=== PATIENT | female | born 1970 | race Caucasian/White ===

== ENCOUNTER → 2016-10-18 | Outpatient (CLI) | payer BC ==
[~2016-10-18] MED LIST: ALLERGY SHOTS INJ; BUPR-79 PO; CETI10TA84 PO; CYAN3INJ SQ; FLNIN NAE; HYDR25TA4 PO; LISI-725 PO; LISI5TAB PO; MULT-506 PO; NALT1TAB14 PO; SNG10 PO; TYLOTC500 PO
--- NOTE | 2016-10-18 14:18 | DIAGNOSTIC IMAGING REPORT ---
KUB HISTORY: CALCULUS OF KIDNEY COMPARISON: KUB 11/04/2014. FINDINGS: The bowel gas pattern is unremarkable. There are no dilated loops of small bowel to suggest an obstruction. No renal calculi. No ureteral calculi. No pneumoperitoneum or pneumatosis. There is suture material within the left side of the abdomen, unchanged. There are surgical clips within the left deep pelvis, unchanged. Stable punctate calcifications in the deep pelvis consistent with phleboliths. Prior cholecystectomy. IMPRESSION: No renal or ureteral stones. Electronically signed by: Spencer Camacho M.D. 10/18/2016 2:16 PM Dictated Date/Time: 10/18/2016 2:15 PM
== END | disposition home or self-care (01) ==
LOC: C.RAD1850 13:40
PROVIDERS: ATTEND Family Medicine
DX: N20.0 Calculus of kidney (principal)

== ENCOUNTER → 2016-10-29 | Outpatient (CLI) | payer BC ==
--- NOTE | 2016-10-29 08:27 | DIAGNOSTIC IMAGING REPORT ---
CT SCAN OF THE ABDOMEN AND PELVIS WITHOUT IV CONTRAST CLINICAL HISTORY: Left flank pain. COMPARISON STUDY: Abdominal CT dated 12/28/2013 and 11/15/2011. TECHNIQUE: CT scan of the abdomen and pelvis is performed from the lung bases to the proximal femora. Images are reviewed in the axial, sagittal, and coronal planes. IV contrast was not administered for this examination. Automated dose control exposure was utilized. CT DOSE: 675.04 mGy.cm FINDINGS: Lung bases: The heart is normal in size and without pericardial effusion. There are scattered coronary artery calcifications. A 4 mm pulmonary nodule at the left lung base seen on image #53. There are 4 mm pleural-based nodules seen in the right middle lobe on image #8 and in the right lower lobe on image #28. Additional small noncalcified nodules and calcified granulomas are present at the lung bases. These are unchanged from 2012 and of doubtful significance. No airspace consolidation or pleural effusion is identified. Liver: The unenhanced liver is normal in size, contour, and attenuation. There is mild central intrahepatic biliary ductal dilatation. Gallbladder: Surgically absent noting clips in the gallbladder fossa. Spleen: Normal in size and attenuation. There are numerous small calcified splenic granulomas. Pancreas: Unremarkable. Adrenal glands: Unremarkable. Kidneys: The unenhanced kidneys are normal in size and without hydronephrosis. Cortical scarring is seen in the left lower pole. There are no renal calculi identified. There is no evidence of contour deforming renal mass lesion. Abdominal vasculature: The abdominal aorta is normal in course and caliber. Stomach and bowel: A tiny hiatal hernia is observed. 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 No bowel obstruction is seen. The appendix is surgically absent. Peritoneum: There is no intraperitoneal free air or abdominal ascites. There is diastases of the rectus musculature with evidence of previous ventral hernia repair. Lymphadenopathy: None. Pelvic viscera: The bladder wall appears thickened and there is mild pericystic stranding. The uterus is normal as visualized. There are bilateral ovarian follicles. Free fluid is seen in the cul-de-sac. Skeletal structures: No lytic or blastic lesions are seen. IMPRESSION: 1. The bladder wall appears thickened and there is mild pericystic stranding. The appearance suggests cystitis. Correlation with clinical findings and urinalysis will be required. 2. There are postoperative changes from a Cristobal-en-Y gastric bypass procedure. No bowel obstruction is seen. 3. Trace free fluid in the cul-de-sac is likely within physiologic limits. 4. Additional findings as above. Electronically signed by: Tor Kennedy M.D. 10/29/2016 8:25 AM Dictated Date/Time: 10/29/2016 8:19 AM
== END | disposition home or self-care (01) ==
LOC: C.CTS 07:45
PROVIDERS: ATTEND Family Medicine
DX: R10.9 Unspecified abdominal pain (principal)

== ENCOUNTER → 2016-12-21 | Day surgery (SDC) | payer BC ==
[2016-12-03 08:29] VITALS: Ht 165.1 cm; Wt 93.2 kg
[~2016-12-21] VITALS: Ht 165.1 cm; Wt 93.2 kg
[~2016-12-21] MED LIST changes: -ALLERGY SHOTS INJ; +ATROPINE SULFATE 0.1 MG/ML 5ML SYR IV PRN; +BUPIVACAINE 0.5 % 5 MG/1 ML MPF 30ML VIAL ONE; +BUPIVACAINE/EPINEPHRINE 0.5% MPF 1:200,000 30 ML VIAL ONE; -BUPR-79 PO; +CEFAZOLIN 2000 MG/60 ML D5W IV SCH; +DEXAMETHASONE SOD INJ 4 MG/ML VIAL ONE; +EpHEDrine SULFATE INJ 50 MG/ML AMP IV PRN; +FENTANYL CITRATE INJ 50 MCG/1 ML 2 ML VIAL IM ONE; +FENTANYL CITRATE INJ 50 MCG/1 ML 2 ML VIAL ONE; +HYDROCODONE/ACETAMOPHEN 5/325MG TAB PO PRN; +LACTATED RINGER'S 1000ML 1,000 ML IV SCH; +LIDOCAINE HCL 1% 20 ML VIAL ONE; +LIDOCAINE HCL 1% MPF 2 ML VIAL ONE; +LIDOCAINE HCL 2% 2 ML VIAL (20MG/ML) ONE; -LISI-725 PO; +METOCLOPRAMIDE HCL INJ 5 MG/ML 2 ML VIAL IV PRN; +MIDAZOLAM HCL 1 MG/ML 2ML VIAL ONE; +ONDANSETRON INJ 2 MG/ML 2 ML VIAL IV PRN; +ONDANSETRON INJ 2 MG/ML 2 ML VIAL ONE; +PROPOFOL IV EMULSION 10 MG/ML 20 ML VIAL IV ONE; +SODIUM CHLORIDE 0.9% 1000ML 1,000 ML IV SCH; -TYLOTC500 PO
--- NOTE | 2016-12-21 06:38 | History & Physical Bridge - SC ---
H&P Re-Evaluation Bridge Note: I have examined the patient, reviewed the History & Physical and in the interval since the performance of the History & Physical I have noted the following changes of clinical significance: No changes noted
--- NOTE | 2016-12-21 08:24 | [facility] Post Operative Brief Note ---
Immediate Operative Summary Operative Date Dec 21, 2016. 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 Left foot Hess's Neuroma 2nd & 3rd toes Drains none Anesthesia general Complication(s) None Disposition Recovery Room / PACU
--- NOTE | 2016-12-21 08:29 | Discharge Instructions-SurgCtr ---
Discharge Instructions Date of Service Dec 21, 2016. Visit Reason for Visit: Left Foot 2ND & 3RD Toes Santos's Neuroma Discharge Discharge Diagnosis / Problem: s/p excision santos's neuroma left foot Discharge Goals Goal(s): Decrease discomfort, Improve function, Increase independence Activity Recommendations Activity Limitations: as noted below Lifting Limitations: gradually increase as tolerated Exercise/Sports Limitations: until after follow-up appointment Shower/Bathe: keep incision dry Driving or Machine Use: when narcotics are discontinued Weightbearing Status: Left weightbearing (as tolerated) Anesthesia . Post Anesthesia Instructions: If you have had General Anesthesia or IV Sedation: * Do not drive today. * Resume driving when surgeon permits. * Do not make important decisions or sign legal documents today. * Call surgeon for: 1. Temperature elevations greater than 101 degrees F. 2. Uncontrollable pain. 3. Excessive bleeding. 4. Persistent nausea and vomiting. 5. Medication intolerance (nausea, vomiting or rash). * For nausea and vomiting use only clear liquids such as: tea, soda, bouillon until nausea subsides, then gradually increase diet as tolerated. * If you have any concerns or questions, call your surgeon's office. If physician is unavailable and it is an emergency, call 911 or go to the nearest emergency room. . Instructions / Follow-Up Instructions / Follow-Up DIET: * Resume previous diet. MEDICATIONS: * Please take your prescriptions as instructed at your pre-op appointment and/ or see medication discharge instructions listed above. * If concerns develop, call your physician's office at . SPECIAL CARE INSTRUCTIONS: * Ice/Elevate as instructed. * Keep dressing clean, dry, intact. * Your surgical extremity may be discolored due to prepping agents used on the skin. A bluish-green tint is a normal variant and should not cause alarm. Call your doctor at [phone] if: * Temperature above 101 degrees * Pain not relieved by pain medicine ordered * There is increased drainage or redness from any incision * You have any unanswered questions, problems or concerns. FOLLOW UP VISIT: * If not already scheduled, please call the office at to schedule a follow-up appointment. Diet Recommendations Home Diet: resume previous diet Procedures Procedures Performed: Left Foot 2nd And 3rd Toes Santos's Neuroma Excision Pending Studies Studies pending at discharge: yes List of pending studies: specimen left foot santos's neuroma Medical Emergencies . Who to Call and When: Medical Emergencies: If at any time you feel your situation is an emergency, please call 911 immediately. . Non-Emergent Contact Non-Emergency issues call your: Primary Care Provider . . "Provider Documentation" section prepared by Norberto Smith. . [place] Drug Monitoring Program Search Results: no issues identified
--- NOTE | 2016-12-21 08:41 | [facility] Operative Report ---
Operative Report Operative Date Dec 21, 2016. 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 Fluids (cc crystalloids) 900 Specimens A. Left foot Hess's Neuroma 2nd & 3rd toes Drains n/a Anesthesia LMA Complication(s) None Disposition Recovery Room / PACU (Stable) Implants 2-0 FiberWire Indications The patient is a 46 year old female with left second and third Hess's neuroma , that has failed conservative treatment and the patient wishes to proceed with surgical intervention. The patient understands the risks of surgery, which include but are not limited to: bleeding, infection, re-operation, damage to nerves and arteries, continued pain, decreased level of activity, and DVT. The patient understands all of these instructions and explanations, all of their questions have been satisfactorily addressed. The patient has elected to proceed with surgery and the informed consent was signed. Description of Procedure The patient was taken to the Operating Room and placed in the supine position on the operating table. After general anesthetic was administered a multidisciplinary time-out was performed identifying my initials on the left lower limb as the correct and operative limb. Prior to the incision being made , 2 grams of intravenous Ancef was given. The left lower leg was prepped and draped in the standard sterile fashion. The planned incision partially 3 cm between the second and third metatarsals from 5 mm from the webspace distal was injected with a 50:50 mixture of 1% lidocaine plain and half percent Marcaine plain for a total of 5 cc. The planned incision was carried through the skin with a scalpel. Blunt dissection was then used and carried down to the intermetatarsal ligament. Care was taken to preserve any of the superficial neurovascular structures. Once the deep intermetatarsal ligament was incised, a lamina video tape transferrer was used to expose the plantar digital nerve. The nerve did appear to be in large to in the area of the deep intermetatarsal ligament. There were some communicating branches to the nerve. The proximal branches to the second and third digit were released first followed by the communicating branches. A 2-0 FiberWire was placed along the nerve proximal to the neuroma and tied. The nerve was then excised distal to the suture. The wound was copiously irrigated. All the instruments were removed. The skin was closed with 4-0 nylon with horizontal mattress sutures. The wound was covered with Xeroform, 4 x 4's, ABDs, sterile cast padding, and an Vincent bandage. A postop shoe was placed. The sponge and needle counts were correct. Post-op Instructions: Pain medicine prescription was given pre-operatively to be taken as needed. The patient will follow up with me in 10-15 days. The patient will be weight bearing as tolerated in the postop shoe. Postoperatively an ankle block was performed by anesthesia, due to pain. I attest to the content of the Intraoperative Record and any orders documented therein. Any exceptions are noted below.
[2016-12-21] MEDS: FENTANYL CITRATE INJ 50 MCG/1 ML 2 ML VIAL IV PRN ×5 (08:45→09:18)
--- NOTE | 2016-12-21 09:51 | Progress Note ---
Progress Note Date of Service Dec 21, 2016. Progress Note Patient in 1010 foot pain around site of incision in pacu. Minimally responsive to 250mcg fentanyl. Toes well perfused and mobile. Spoke with Dr Palomares who commented that his surgical field was deeper than anticipated. I did offer the patient a nerve block for her post op pain and she consented. Under ultrasound guidance and sterile technique, a 10cm stimuplex needle was advanced to the sciatic nerve above the popliteal crease just prior to the bifurcation of the common peroneal and tibial nerve. 20cc of 0.25% bupivicaine with 1:200k epinephrine and 4mg of Dexamethasone were injected under live ultrasound guidance. Spread of local anesthetic was observed distally around both nerves. The patient's pain improved significantly and an adequate sensory distribution was observed. At this point she was progressed in her PACU course. No complications of the nerve block were observed and the patient tolerated the procedure well.
[2016-12-21 10:08] VITALS: TEMP 36.4
--- NOTE | 2016-12-21 10:17 | Anesthesia Progress Nt - [facility] ---
Anesthesia Post Op Note Date & Time Dec 21, 2016 at 10:16 Vital Signs Pain Intensity: 3 Vital Signs Past 12 Hours Date Time Temp Pulse Resp B/P (MAP) Pulse Ox O2 Delivery O2 Flow Rate FiO2 12/21/16 09:36 135/85 12/21/16 09:33 70 22 12/21/16 09:33 72 22 100 12/21/16 09:31 136/91 12/21/16 09:29 136/98 12/21/16 09:28 71 16 95 12/21/16 09:28 73 16 12/21/16 09:27 126/87 12/21/16 09:23 95 21 12/21/16 09:23 94 21 180/119 100 12/21/16 09:18 90 34 100 12/21/16 09:18 89 34 12/21/16 09:13 76 21 12/21/16 09:13 74 21 100 12/21/16 09:12 177/105 12/21/16 09:08 81 21 100 12/21/16 09:08 82 21 12/21/16 09:07 186/139 12/21/16 09:03 76 21 99 12/21/16 09:03 78 21 12/21/16 08:58 86 16 99 12/21/16 08:58 87 16 12/21/16 08:57 170/104 12/21/16 08:53 84 24 99 12/21/16 08:53 85 24 12/21/16 08:52 172/117 12/21/16 08:50 164/107 12/21/16 08:39 36.1 95 16 152/103 97 Mask 12/21/16 06:31 36.7 59 16 118/89 (99) 100 Room Air Notes Mental Status: alert / awake / arousable, participated in evaluation Pt Amnestic to Procedure: Yes Nausea / Vomiting: adequately controlled Pain: adequately controlled Airway Patency, RR, SpO2: stable & adequate BP & HR: stable & adequate Hydration State: stable & adequate Anesthetic Complications: no major complications apparent PNB done in PACU for severe pain. This improved her pain significantly and her remainder of PACU stay was uneventful.
[2016-12-21 10:44] VITALS: BP 143/82; PULSE 70; O2SAT 98
== END | disposition home or self-care (01) ==
LOC: X.SURG 06:12
PROVIDERS: ATTEND Orthopaedic Surgery Sports Medicine
DX: G57.62 Lesion of plantar nerve, left lower limb (principal); I10 Essential (primary) hypertension; Z88.0 Allergy status to penicillin; Z91.040 Latex allergy status; Z68.34 Body mass index [BMI] 34.0-34.9, adult; Z90.89 Acquired absence of other organs; Z98.84 Bariatric surgery status

== ENCOUNTER → 2017-01-28 | Outpatient (CLI) | payer BC ==
[~2017-01-28] MED LIST changes: -ATROPINE SULFATE 0.1 MG/ML 5ML SYR IV PRN; -BUPIVACAINE 0.5 % 5 MG/1 ML MPF 30ML VIAL ONE; -BUPIVACAINE/EPINEPHRINE 0.5% MPF 1:200,000 30 ML VIAL ONE; -CEFAZOLIN 2000 MG/60 ML D5W IV SCH; -DEXAMETHASONE SOD INJ 4 MG/ML VIAL ONE; -EpHEDrine SULFATE INJ 50 MG/ML AMP IV PRN; -FENTANYL CITRATE INJ 50 MCG/1 ML 2 ML VIAL IM ONE; -FENTANYL CITRATE INJ 50 MCG/1 ML 2 ML VIAL ONE; -HYDROCODONE/ACETAMOPHEN 5/325MG TAB PO PRN; -LACTATED RINGER'S 1000ML 1,000 ML IV SCH; -LIDOCAINE HCL 1% 20 ML VIAL ONE; -LIDOCAINE HCL 1% MPF 2 ML VIAL ONE; -LIDOCAINE HCL 2% 2 ML VIAL (20MG/ML) ONE; -METOCLOPRAMIDE HCL INJ 5 MG/ML 2 ML VIAL IV PRN; -MIDAZOLAM HCL 1 MG/ML 2ML VIAL ONE; -ONDANSETRON INJ 2 MG/ML 2 ML VIAL IV PRN; -ONDANSETRON INJ 2 MG/ML 2 ML VIAL ONE; -PROPOFOL IV EMULSION 10 MG/ML 20 ML VIAL IV ONE; -SODIUM CHLORIDE 0.9% 1000ML 1,000 ML IV SCH
--- NOTE | 2017-01-28 13:04 | DIAGNOSTIC IMAGING REPORT ---
ULTRASOUND LEFT LOWER EXTREMITY VENOUS CLINICAL HISTORY: Left leg swelling. COMPARISON STUDY: No priors. TECHNIQUE: Real-time, grayscale, and color Doppler sonography of the deep veins of the left lower extremity was performed from the inguinal crease to the calf. Compression and augmentation were utilized. FINDINGS: There is no sonographic evidence of deep venous thrombosis identified in the left lower extremity. The common femoral, superficial femoral, and popliteal veins are patent and normally compressible. The greater saphenous vein and the profunda femoris vein at the junction with the common femoral vein are clear. The visualized calf veins are patent. IMPRESSION: There is no sonographic evidence of deep venous thrombosis identified in the left lower extremity. Electronically signed by: Tor Kennedy M.D. 01/28/2017 1:02 PM Dictated Date/Time: 01/28/2017 1:02 PM
== END | disposition home or self-care (01) ==
LOC: C.ULTR 12:22
PROVIDERS: ATTEND Orthopaedic Surgery Sports Medicine
DX: Z09 Encounter for follow-up examination after completed treatment for conditions other than malignant neoplasm (principal); M79.89 Other specified soft tissue disorders

== ENCOUNTER → 2017-02-22 | Outpatient (CLI) | payer BC ==
--- NOTE | 2017-02-23 16:00 | MAMMOGRAPHY REPORT ---
BILATERAL DIGITAL SCREENING MAMMOGRAM TOMOSYNTHESIS WITH CAD: 02/22/2017 CLINICAL HISTORY: Annual bilateral screening. Patient reported left breast pain for a few days durin g this screening exam. TECHNIQUE: Bilateral breast tomosynthesis in addition to standard 2D mammography was performed. Curre nt study was also evaluated with a Computer Aided Detection (CAD) system. COMPARISON: Comparison is made to exams dated: 02/18/2016 mammogram, 02/13/2015 mammogram, 07/15/2014 m ammogram, 10/17/2013 mammogram, 10/12/2012 mammogram, and 09/06/2011 mammogram - [facility]ter. BREAST COMPOSITION: The tissue of both breasts is almost entirely fatty. FINDINGS: There is stable focal asymmetry in the upper outer anterior right breast. No new suspiciou s mass, architectural distortion or cluster of microcalcifications is seen. IMPRESSION: ACR BI-RADS CATEGORY 2: BENIGN 1. Stable bilateral mammograms, without mammographic evidence of malignancy. 2. The patient reported left breast pain for a few days. Although there is no interval mammographic change evident in the left breast, clinical follow-up is recommended. 3. Otherwise, a 1 year screening mammogram is recommended. The patient will receive written notification of the results. Approximately 10% of breast cancers are not detected with mammography. A negative mammographic report should not delay biopsy if a clinically suggestive mass is present. Aixa Amaya M.D. ay/:02/22/2017 18:40:03 Truck Loader: Rachel URIBE)(Erich), [facility] letter sent: Normal 1/2 BI-RADS Code: ACR BI-RADS Category 2: Benign
== END | disposition home or self-care (01) ==
LOC: C.MAMM 15:55
PROVIDERS: ATTEND Family Medicine
DX: Z12.31 Encounter for screening mammogram for malignant neoplasm of breast (principal); N64.4 Mastodynia

== ENCOUNTER → 2017-11-08 | Outpatient (CLI) | payer OTHER ==
--- NOTE | 2017-11-08 16:43 | DIAGNOSTIC IMAGING REPORT ---
FUSION CT SINUSES W/O CLINICAL HISTORY: J32.9 Chronic sinusitis patient with sinonasal pressure and pain. COMPARISON STUDY: No previous studies for comparison. FINDINGS: Helical images were acquired in transverse plane. Coronal and sagittal images were reviewed. A dose reduction technique was utilized according to the principles of ALARA. No orbital masses are visualized. There is no hydrocephalus. The mastoid air cells are symmetrically aerated. Middle ear cavities appear well aerated. The sphenoid, maxillary, ethmoid, and frontal sinuses are clear. The ethmoid notches are protected. The left olfactory groove is 6 mm in depth. The right olfactory groove is 5 mm in depth. There is partial pneumatization of the middle turbinates. The ostiomeatal units are patent bilaterally. The frontal and sphenoid recesses appear patent. There is a 5 mm polypoid density within a partially pneumatized right middle turbinate IMPRESSION: 1. No evidence of acute or chronic sinusitis 2. The ostiomeatal units are patent bilaterally 3. There is a 5 mm polypoid density within a partially pneumatized right middle turbinate Electronically signed by: Jl Yee M.D. 11/08/2017 4:42 PM Dictated Date/Time: 11/08/2017 4:38 PM
== END | disposition home or self-care (01) ==
LOC: C.CTS 16:21
PROVIDERS: ATTEND Physician Assistant
DX: J32.9 Chronic sinusitis, unspecified (principal); J33.8 Other polyp of sinus